=== PATIENT | female | born 1955 | race American Indian/Alaskan Native ===

== ENCOUNTER 2017-10-12 16:05 | Inpatient (IN) | payer MEDICAID, OTHER ==
[2017-10-12 16:08] VITALS: BMI 50.3
[2017-10-12] MEDS ORDERED: Sodium Chloride 0.9% 1,000 ML IV STA ×2 (16:50→19:56)
--- NOTE | 2017-10-12 17:10 | ED PDOC ---
Arrival/HPI - General Historian: Patient <Jasson Galarza - Last Filed: 10/12/17 18:06> <Mayco Michel - Last Filed: 10/13/17 05:57> - General Chief Complaint: GI Problem Time Seen by Provider: 10/12/17 16:32 - History of Present Illness Narrative History of Present Illness (Text): 10/12/17 16:47 A 62 year old female, whose past medical history includes morbidly obese, gout, and hypertension, presents to the emergency department complaining of decreased appetite and dry mouth. Patient reports mouth has "sour taste". Notes also experiencing unintentional weight loss for the past 3-4 weeks; as well as epigastric pain, currently minimal. Patient has also had dirrhea for past 4 days. Denies of any fever, or any other complaints at this time. Also, patient mentions she takes Meloxicam for arthritis. NO PMD (Jasson Galarza) Past Medical History - Provider Review Nursing Documentation Reviewed: Yes - Infectious Disease Hx of Infectious Diseases: None - Cardiac Hx Hypertension: Yes - Musculoskeletal/Rheumatological Hx Arthritis: Yes Hx Gout: Yes - Psychiatric Hx Substance Use: No - Surgical History Hx Section: Yes (x1) Other/Comment: laparoscopic surgery - Anesthesia Hx Anesthesia: No <Jasson Galarza - Last Filed: 10/12/17 18:06> Family/Social History - Physician Review Nursing Documentation Reviewed: Yes Family/Social History: No Known Family HX Smoking Status: Never Smoked Hx Alcohol Use: No Hx Substance Use: No <Jasson Galarza - Last Filed: 10/12/17 18:06> Allergies/Home Meds <Jasson Galarza - Last Filed: 10/12/17 18:06> <Mayco Michel - Last Filed: 10/13/17 05:57> Allergies/Adverse Reactions: Allergies No Known Allergies Allergy (Verified 10/12/17 16:07) Home Medications: Home Meds Medication Instructions Recorded Confirmed Allopurinol [Zyloprim] 1 tab PO DAILY 10/12/17 10/12/17 Colchicine [Colcrys] 1 tab PO BID 10/12/17 10/12/17 Ergocalciferol [Drisdol 50,000 1 cap PO Q7D 10/12/17 10/12/17 Intl Units Cap] Meloxicam [Mobic] 1 tab PO DAILY 10/12/17 10/12/17 amLODIPine [Norvasc] 1 tab PO DAILY 10/12/17 10/12/17 oxyCODONE/Acetaminophen [Percocet 1 tab PO Q6H PRN 10/12/17 10/12/17 5/325 mg Tab] Review of Systems - Physician Review All systems were reviewed & negative as marked: Yes - Review of Systems Constitutional: Other (dry mouth ("sour taste")). absent: Fevers Gastrointestinal: Abdominal Pain (epigastric), Appetite Changes (decreased with associated weight loss (3-4 weeks)) <Jasson Galarza - Last Filed: 10/12/17 18:06> Physical Exam Vital Signs Reviewed: Yes Temperature: Afebrile Blood Pressure: Normal Pulse: Regular Respiratory Rate: Normal Appearance: Positive for: Well-Appearing Pain Distress: None Mental Status: Positive for: Alert and Oriented X 3 - Systems Exam Head: Present: Atraumatic, Normocephalic Pupils: Present: PERRL Extroacular Muscles: Present: EOMI Conjunctiva: Present: Normal Mouth: Present: Moist Mucous Membranes Neck: Present: Normal Range of Motion Respiratory/Chest: Present: Clear to Auscultation, Good Air Exchange. No: Respiratory Distress, Accessory Muscle Use Cardiovascular: Present: Regular Rate and Rhythm, Normal S1, S2. No: Murmurs Abdomen: Present: Tenderness (epigastric tenderness). No: Rebound, Guarding Back: Present: Normal Inspection Upper Extremity: Present: Normal Inspection. No: Cyanosis, Edema Lower Extremity: Present: Normal Inspection. No: Edema Neurological: Present: GCS=15, CN II-XII Intact, Speech Normal Skin: Present: Warm, Dry, Normal Color. No: Rashes Psychiatric: Present: Alert, Oriented x 3, Normal Insight, Normal Concentration <Jasson Galarza - Last Filed: 10/12/17 18:06> Vital Signs Temp Pulse Resp BP Pulse Ox 10/12/17 23:11 98.0 F 79 19 118/79 100 10/12/17 19:40 76 18 106/77 99 10/12/17 16:18 97.9 F 81 18 127/84 98 Medical Decision Making <Jasson Galarza - Last Filed: 10/12/17 18:06> <Mayco Michel - Last Filed: 10/13/17 05:57> ED Course and Treatment: 10/12/17 16:51 Impression: 62 year old female with decreased appetite and minimal epigastric pain. Physical exam epigastric tenderness no rebound and no guarding. Plan: -- EKG -- Labs -- Urinalysis -- IV Fluids -- Reassess and disposition Prior Visits: Notes and results from previous visits were reviewed. Patient was last seen in the emergency department on Progress Notes: EKG: Ordered, reviewed, and independently interpreted the EKG. Rate : 68 BPM Rhythm : NSR Interpretation : No ST-segment elevations or depressions, no T-wave inversions, normal intervals. Comparison : No previous EKG for comparison. 10/12/17 18:06 pt with noted elevated cr. pt denies any h/o of renal insufficeny, does not recall recent blood work. (Jasson Galarza) 10/12/17 16:58 Case endorsed to me by Dr. Galarza. Pending CT. CT scan shows nonspecific colitis however pt denies any n/v or diarrhea or abdominal pain. will admit for ARF to House doctor. 10/12/17 21:25 (Mayco Michel) - Lab Interpretations Lab Results: 10/12/17 16:50 10/12/17 17:35 Lab Results 10/12/17 19:10: Urine Color Dark yellow, Urine Appearance Slight-cloudy, Urine pH 5.5, Ur Specific [place] >= 1.030, Urine Protein 30 H, Urine Glucose (UA) Negative, Urine Ketones Trace H, Urine Blood Negative, Urine Nitrate Negative, Urine Bilirubin Small H, Urine Urobilinogen 0.2, Ur Leukocyte Esterase Negative , Urine RBC 2 - 5, Urine WBC 5 - 10, Ur Epithelial Cells 6 - 8, Amorphous Sediment Small, Urine Bacteria Trace 10/12/17 17:35: Sodium 143, Potassium 4.6, Chloride 112 H, Carbon Dioxide 21, Anion Gap 15, BUN 23 H, Creatinine 2.7 H, Est GFR ( Amer) 22, Est GFR ( Non-Af Amer) 18, Random Glucose 75, Calcium 9.5, Total Bilirubin 1.1, AST 93 H, ALT 73 H, Alkaline Phosphatase 111, Lactate Dehydrogenase 793 H, Total Creatine Kinase 422 H, CK-MB (CK-2) 4.3 H, CK-MB (CK-2) % Cancelled, Troponin I < 0.01, Total Protein 7.3, Albumin 3.8, Globulin 3.5, Albumin/Globulin Ratio 1.1, Lipase 51 10/12/17 16:50: PT 11.1, INR 1.02, APTT 25.1 10/12/17 16:50: WBC 5.5, RBC 4.06, Hgb 10.6 L, Hct 34.1 L, MCV 84.0, MCH 26.1, MCHC 31.1, RDW 17.7 H, Plt Count 196, MPV 11.4 H, Gran % 52.4, Lymph % (Auto) 35.6 H, [place] % (Auto) 10.5 H, Eos % (Auto) 1.3 L, Baso % (Auto) 0.2, Gran # 2.86 , Lymph # 1.9, [place] # 0.6, Eos # 0.1, Baso # 0.01 - RAD Interpretation Radiology Orders: 10/12/17 18:05 ABD & PELVIS PO CONTRAST ONLY [CT] Stat - Medication Orders Current Medication Orders: Allopurinol (Zyloprim) 300 mg PO DAILY [facility] Colchicine (Colocrys) 0.6 mg PO BID [facility] Heparin Sodium (Porcine) (Heparin) 5,000 units SC Q12 [facility] PRN Reason: Protocol Sodium Chloride (Sodium Chloride 0.9%) 1,000 mls @ 100 mls/hr IV .Q10H [facility] Last Admin: 10/13/17 01:05 Dose: Pantoprazole Sodium (Protonix Ec Tab) 40 mg PO 0600 [facility] Last Admin: 10/13/17 05:42 Dose: Not Given Non-Admin Reason: Patient Asleep Discontinued Medications Sodium Chloride (Sodium Chloride 0.9%) 1,000 mls @ 1,000 mls/hr IV .Q1H [facility] Stop: 10/12/17 17:49 Last Admin: 10/12/17 17:26 Dose: 1,000 mls/hr eMAR Start Stop Document 10/12/17 17:26 [email or web address] (Rec: 10/12/17 17:27 [email or web address] Intravenous Solution Start Date 10/12/17 Start Time 17:27 End Date 10/12/17 Sodium Chloride (Sodium Chloride 0.9%) 1,000 mls @ 250 mls/hr IV .Q4H [facility] Stop: 10/12/17 23:55 Last Admin: 10/12/17 20:44 Dose: 250 mls/hr eMAR Start Stop Document 10/12/17 20:44 [email or web address] (Rec: 10/12/17 20:44 [email or web address] Intravenous Solution Start Date 10/12/17 Start Time 20:44 End Date 10/12/17 - Scribe Statement The provider has reviewed the documentation as recorded by the Scribe <Jasson Galarza - Last Filed: 10/12/17 18:06> <Mayco Michel - Last Filed: 10/13/17 05:57> - Scribe Statement Kev Mcqueen Provider Scribe Attestation: All medical record entries made by the Scribe were at my direction and personally dictated by me. I have reviewed the chart and agree that the record accurately reflects my personal performance of the history, physical exam, medical decision making, and the department course for this patient. I have also personally directed, reviewed, and agree with the discharge instructions and disposition. (Jasson Galarza) Disposition/Present on Arrival - Present on Arrival History of DVT/PE: No History of Uncontrolled Diabetes: No Urinary Catheter: No History of Decub. Ulcer: No History Surgical Site Infection Following: None <Jasson Galarza - Last Filed: 10/12/17 18:06> - Present on Arrival Any Indicators Present on Arrival: No - Disposition Have Diagnosis and Disposition been Completed?: Yes Disposition Time: 22:00 Patient Plan: Admission <Mayco Michel - Last Filed: 10/13/17 05:57> - Disposition Diagnosis: Acute renal failure Disposition: HOSPITALIZED Condition: IMPROVED
[2017-10-12 17:33] LABS: BASO # 0.01 K/mm3 (0.0-2.0); BASO % 0.2 % (0.0-3.0); EOS # 0.1 (0.0-0.7); EOS % 1.3 % (1.5-5.0); GRAN # 2.86 (1.4-6.5); GRAN % 52.4 % (50.0-68.0); HEMATOCRIT 34.1 % (36.0-48.0); LYMPH # 1.9 (1.2-3.4); LYMPH % 35.6 % (22.0-35.0); MEAN CORPUSCULAR HEMOGLOBIN 26.1 pg (25.0-35.0); MEAN CORPUSCULAR HGB CONC 31.1 g/dl (31.0-37.0); MEAN PLATELET VOLUME 11.4 fl (7.0-11.0); MONO # 0.6 (0.1-0.6); MONO % 10.5 % (1.0-6.0); RED CELL DISTRIBUTION WIDTH 17.7 % (11.5-14.5); WHITE BLOOD COUNT 5.5 10^3/ul (4.5-11.0)
[2017-10-12 17:40] LABS: INR 1.02 (0.93-1.08); PARTIAL THROMBOPLASTIN TIME 25.1 Seconds (25.1-36.5)
[2017-10-12 17:57] LABS: TROPONIN I < 0.01 ng/mL
[2017-10-12 17:58] LABS: ALB/GLOB RATIO 1.1 (1.1-1.8); ALKALINE PHOSPHATASE 111 U/L (38-126); ALT/SGPT 73 U/L (7-56); AST/SGOT 93 U/L (14-36); BILIRUBIN,TOTAL 1.1 mg/dL (0.2-1.3); BLOOD UREA NITROGEN 23 mg/dL (7-21); CALCIUM 9.5 mg/dL (8.4-10.5); CARBON DIOXIDE 21 mmol/L (21-33); CHLORIDE 112 mmol/L (98-107); GFR AFRICAN-AMERICAN 22; GLUCOSE,RANDOM 75 mg/dL (70-110); LIPASE 51 U/L (23-300); POTASSIUM 4.6 mmol/L (3.6-5.0); SODIUM 143 mmol/L (132-148); TOTAL PROTEIN 7.3 g/dL (5.8-8.3)
[2017-10-12] MEDS ORDERED: Iohexol 240 (50 ml) ONE (18:29)
[2017-10-12 19:13] LABS: PH,URINE 5.5 (4.7-8.0); URINE BILIRUBIN SMALL (NEGATIVE); URINE BLOOD NEGATIVE (NEGATIVE); URINE GLUCOSE (UA) NEGATIVE (NEGATIVE); URINE KETONE TRACE mg/dL (NEGATIVE); URINE LEUKOCYTE ESTERASE NEGATIVE Leu/uL (NEGATIVE); URINE PROTEIN 30 mg/dL (<30 mg/dL); URINE UROBILINOGEN 0.2 E.U./dL (<1 E.U./dL)
[2017-10-12 19:14] LABS: URINE AMORPHOUS SEDIMENT SMALL; URINE APPEARANCE SLIGHT-CLOUDY (CLEAR); URINE BACTERIA TRACE (NEG); URINE COLOR DARK YELLOW (YELLOW)
--- NOTE | 2017-10-12 20:54 | CT ---
EXAM: CT Abdomen and Pelvis Without Intravenous Contrast CLINICAL HISTORY: 62 years old, female; Pain; Abdominal pain; Acute; Additional info: Abd pain, diarrhea TECHNIQUE: Axial computed tomography images of the abdomen and pelvis without intravenous contrast. All CT scans at this facility use one or more dose reduction techniques, viz.: automated exposure control; ma/kV adjustment per patient size (including targeted exams where dose is matched to indication; i.e. head); or iterative reconstruction technique. Coronal and sagittal reformatted images were created and reviewed. Oral contrast was utilized. COMPARISON: No relevant prior studies available. FINDINGS: Lower thorax: The bilateral lung bases are clear. ABDOMEN: Liver: Steatosis. Gallbladder and bile ducts: The gallbladder is surgically absent. No intra-extrahepatic biliary ductal dilation. Pancreas: Limited evaluation secondary to the lack of intravenous contrast. Spleen: No acute findings. Adrenals: No acute findings. Kidneys and ureters: No obstructing stones. No hydronephrosis. PELVIS: Bladder: No acute findings. Reproductive: No acute findings. Appendix: The appendix is of normal-caliber (series 2, image 94). ABDOMEN and PELVIS: Stomach and bowel: Mural edema within the cecum, ascending and proximal transverse colons, with trace surrounding inflammatory change. Fat containing umbilical hernia. Fat-containing left inguinal hernia. Peritoneum: As above. Lymph nodes: Limited evaluation without intravenous contrast. Vasculature: No aortic aneurysm. Bones: No acute fracture. IMPRESSION: Findings consistent with colitis of the proximal colon, as detailed above.
--- NOTE | 2017-10-12 21:26 | ED PDOC ---
Physical Exam Vital Signs Temp Pulse Resp BP Pulse Ox 10/12/17 19:40 76 18 106/77 99 10/12/17 16:18 97.9 F 81 18 127/84 98 Medical Decision Making ED Course and Treatment: 10/12/17 21:25 Case endorsed to me by Dr. Galarza. - Lab Interpretations Lab Results: 10/12/17 16:50 10/12/17 17:35 Lab Results 10/12/17 19:10: Urine Color Dark yellow, Urine Appearance Slight-cloudy, Urine pH 5.5, Ur Specific [place] >= 1.030, Urine Protein 30 H, Urine Glucose (UA) Negative, Urine Ketones Trace H, Urine Blood Negative, Urine Nitrate Negative, Urine Bilirubin Small H, Urine Urobilinogen 0.2, Ur Leukocyte Esterase Negative , Urine RBC 2 - 5, Urine WBC 5 - 10, Ur Epithelial Cells 6 - 8, Amorphous Sediment Small, Urine Bacteria Trace 10/12/17 17:35: Sodium 143, Potassium 4.6, Chloride 112 H, Carbon Dioxide 21, Anion Gap 15, BUN 23 H, Creatinine 2.7 H, Est GFR ( Amer) 22, Est GFR ( Non-Af Amer) 18, Random Glucose 75, Calcium 9.5, Total Bilirubin 1.1, AST 93 H, ALT 73 H, Alkaline Phosphatase 111, Lactate Dehydrogenase 793 H, Total Creatine Kinase 422 H, CK-MB (CK-2) 4.3 H, CK-MB (CK-2) % Cancelled, Troponin I < 0.01, Total Protein 7.3, Albumin 3.8, Globulin 3.5, Albumin/Globulin Ratio 1.1, Lipase 51 10/12/17 16:50: PT 11.1, INR 1.02, APTT 25.1 10/12/17 16:50: WBC 5.5, RBC 4.06, Hgb 10.6 L, Hct 34.1 L, MCV 84.0, MCH 26.1, MCHC 31.1, RDW 17.7 H, Plt Count 196, MPV 11.4 H, Gran % 52.4, Lymph % (Auto) 35.6 H, [place] % (Auto) 10.5 H, Eos % (Auto) 1.3 L, Baso % (Auto) 0.2, Gran # 2.86 , Lymph # 1.9, [place] # 0.6, Eos # 0.1, Baso # 0.01 - RAD Interpretation Radiology Orders: 10/12/17 18:05 ABD & PELVIS PO CONTRAST ONLY [CT] Stat - Medication Orders Current Medication Orders: Sodium Chloride (Sodium Chloride 0.9%) 1,000 mls @ 250 mls/hr IV .Q4H [facility] Stop: 10/12/17 23:55 Last Admin: 10/12/17 20:44 Dose: 250 mls/hr eMAR Start Stop Document 10/12/17 20:44 [email or web address] (Rec: 10/12/17 20:44 [email or web address] Intravenous Solution Start Date 10/12/17 Start Time 20:44 End Date 10/12/17 Discontinued Medications Sodium Chloride (Sodium Chloride 0.9%) 1,000 mls @ 1,000 mls/hr IV .Q1H [facility] Stop: 10/12/17 17:49 Last Admin: 10/12/17 17:26 Dose: 1,000 mls/hr eMAR Start Stop Document 10/12/17 17:26 [email or web address] (Rec: 10/12/17 17:27 [email or web address] Intravenous Solution Start Date 10/12/17 Start Time 17:27 End Date 10/12/17 Disposition/Present on Arrival - Present on Arrival History of DVT/PE: No History of Uncontrolled Diabetes: No Urinary Catheter: No History of Decub. Ulcer: No History Surgical Site Infection Following: None - Disposition Forms: [facility] ([place])
--- NOTE | 2017-10-13 00:41 | CP.PCM.HP ---
<Enzo Kaplan - Last Filed: 10/13/17 00:25> History of Present Illness - History of Present Illness History of Present Illness: Enzo Kaplan DO PGY1 - Internal Medicine H&P CC: Loss of appetite and fatigue x4 weeks HPI: 62 yo F with PMH of morbid obesity, gout, HTN and arthritis, presented to the ER complaining of sour taste in her mouth, lack of appetite, fatigue, and weight loss for the past 4 weeks. She reports that one month ago, her PMD started her on meloxicam for her joint pains, and ever since starting that she has had a sour taste in her mouth with everything she eats, subsequently resulting in a lack of appetite. She reports that she hasn't been eating much for the past month, and has lost a small amount of weight (unsure of how much), and that she has been fatigued. She denies fevers, chills, night sweats, hematochezia, melena, hemoptysis, hematemesis. She also reports chronic lower extremity swelling, recently worsened, but denies any history of renal disease or heart disease. She reports normal urinary habits, without any recent changes ; denies dysuria, hematuria, urgency, frequency, hesitancy. She also denies nausea, vomiting, diarrhea, constipation, abdominal pain. ROS: 12 point ROS was obtained and was negative except as in HPI PMH: As above PSH: section; Unknown laparoscopic abdominal surgery (probably cholecystecomy) Soc: Denies tobacco or alcohol; reports 12 year history of smoking cocaine, clean since 1994 FHx: Colon CA in grandmother age 70 All: NKDA PMD: Dr. Prather Present on Admission - Present on Admission Any Indicators Present on Admission: No Past Patient History - Infectious Disease Hx of Infectious Diseases: None - Past Social History Smoking Status: Never Smoked - CARDIAC Hx Hypertension: Yes - MUSCULOSKELETAL/RHEUMATOLOGICAL Hx Arthritis: Yes Hx Gout: Yes - PSYCHIATRIC Hx Substance Use: No - SURGICAL HISTORY Hx Section: Yes (x1) Other/Comment: laparoscopic surgery - ANESTHESIA Hx Anesthesia: No Meds Allergies/Adverse Reactions: Allergies Allergy/AdvReac Type Severity Reaction Status Date / Time No Known Allergies Allergy Verified 10/12/17 16:07 Physical Exam - Constitutional Appears: Non-toxic, No Acute Distress - Head Exam Head Exam: ATRAUMATIC, NORMOCEPHALIC - Eye Exam Eye Exam: EOMI, Normal appearance, Periorbital swelling. absent: Scleral icterus - ENT Exam ENT Exam: Mucous Membranes Dry - Neck Exam Neck exam: Positive for: Normal Inspection - Respiratory Exam Respiratory Exam: Clear to Auscultation Bilateral, NORMAL BREATHING PATTERN - Cardiovascular Exam Cardiovascular Exam: RRR, +S1, +S2. absent: JVD - GI/Abdominal Exam GI & Abdominal Exam: Normal Bowel Sounds, Soft. absent: Distended, Firm, Guarding, Organomegaly, Rebound, Rigid, Tenderness Additional comments: Morbidly obese - Extremities Exam Extremities exam: Positive for: pedal edema. Negative for: calf tenderness Additional comments: 2-3+ pitting edema to upper [place] - Back Exam Back exam: absent: CVA tenderness (L), CVA tenderness (R) - Neurological Exam Neurological exam: Alert, Oriented x3 - Psychiatric Exam Psychiatric exam: Normal Affect, Normal Mood - Skin Skin Exam: Dry, Intact Results - Vital Signs Recent Vital Signs: Last Vital Signs Temp 98.0 F 10/12/17 23:11 Pulse 79 10/12/17 23:11 Resp 18 10/12/17 23:57 BP 118/79 10/12/17 23:11 Pulse Ox 99 10/12/17 23:57 - Labs Result Diagrams: 10/12/17 16:50 10/12/17 17:35 Assessment & Plan - Assessment and Plan (Free Text) Assessment: 62 yo F with PMH of morbid obesity, gout, HTN, arthritis presents complaining of dysgeusia, anorexia, and fatigue. Noted to have renal failure on intake labs and edema of proximal colon on sectional imaging Plan 1. Fatigue, weightloss, anorexia - Likely 2/2 renal failure vs dysgeusia as adverse effect of meloxicam - IVF hydration - Continue to monitor 2. Renal failure - Patient noted to have severely elevated creatinine on intake labs; no prior labs to compare - No obstructive uropathy, like prerenal 2/2 anorexia vs intrarenal 2/2 rhabdomyolysis (elevated CK) - Patient received 2L bolus in ER, continue IVF hydration, recheck Cr with AM labs - Ordered renal US to r/o anatomical pathology; Urine electrolytes, osmolality, creatinine to calculate FeNa and fluid status - Requested nephro consult; appreciate recs 3. Peripheral edema - Likely 2/2 renal failure - No signs of pulmonary edema on exam - Hold home norvasc - Strict I&O and daily weights - Continue to monitor 4. Proximal colon edema - CT A/P showed mural edema in cecum, ascending and proximal transverse colons - Ordered stool lactoferrin to r/o inflammatory etiology - Ordered stool culture to r/o infectious etiology - Requested GI consult; appreciate recs 5. Transaminemia - Patient with mild elevation in aminotransferases, without RUQ tenderness, negative singh's sign - Likely 2/2 steatosis, as seen on CT Abdomen - Normal INR - Monitor with AM labs - GI on consult, appreciate recs 6. Anemia - Normocytic anemia with elevated RDW; likely 2/2 chronic disease vs renal failure; no prior labs to compare - Ordered iron studies, folate, and B12 - Patient is hemodynamically stable with no signs of active bleeding - Recheck with AM labs 7. h/o Gout - Resume home meds 8. h/o HTN - BP currently stable; hold home norvasc as above GI/DVT Ppx - Protonix and Heparin Patient seen, discussed, and reviewed with attending <Juni Da Silva - Last Filed: 10/13/17 06:26> Results - Vital Signs Recent Vital Signs: Last Vital Signs Temp 98.7 F 10/13/17 01:32 Pulse 84 10/13/17 01:32 Resp 18 10/13/17 01:32 BP 132/87 10/13/17 01:32 Pulse Ox 99 10/12/17 23:57 - Labs Result Diagrams: 10/12/17 16:50 10/12/17 17:35 Labs: Laboratory Results - last 24 hr 10/12/17 23:58 Ur Random Sodium 96 Ur Random Potassium 37.1 Attending/Attestation - Attestation I have personally seen and examined this patient.: Yes I have fully participated in the care of the patient.: Yes I have reviewed all pertinent clinical information: Yes Notes (Text): 10/13/17 06:25 Patient was seen when she was in bed # 14 in the ER. Agree with history, physical examination, assessment and plan.
[2017-10-13] MEDS: Sodium Chloride 0.9% 1,000 ML IV SCH ×3 (01:05→20:00)
[2017-10-13] MEDS: Pantoprazole 40 mg EC Tab PO SCH (05:42)
[2017-10-13 07:02] LABS: BASO # 0.01 K/mm3 (0.0-2.0); BASO % 0.2 % (0.0-3.0); EOS # 0.1 (0.0-0.7); EOS % 1.2 % (1.5-5.0); GRAN # 3.54 (1.4-6.5); GRAN % 60.8 % (50.0-68.0); HEMATOCRIT 31.5 % (36.0-48.0); LYMPH # 1.5 (1.2-3.4); LYMPH % 25.9 % (22.0-35.0); MEAN CELL VOLUME 84.5 fl (80.0-105.0); MEAN CORPUSCULAR HEMOGLOBIN 25.7 pg (25.0-35.0); MEAN CORPUSCULAR HGB CONC 30.5 g/dl (31.0-37.0); MONO # 0.7 (0.1-0.6); MONO % 11.9 % (1.0-6.0); PLATELET COUNT 177 10^3/uL (120.0-450.0); RED CELL DISTRIBUTION WIDTH 17.9 % (11.5-14.5); WHITE BLOOD COUNT 5.8 10^3/ul (4.5-11.0)
[2017-10-13 07:09] LABS: IRON 44 ug/dL (45-180)
[2017-10-13 08:02] LABS: BILIRUBIN,TOTAL 0.9 mg/dL (0.2-1.3); CALCIUM 8.8 mg/dL (8.4-10.5); MAGNESIUM 1.2 mg/dL (1.7-2.2); PHOSPHOROUS 4.1 mg/dL (2.5-4.5); POTASSIUM 4.1 mmol/L (3.6-5.0)
[2017-10-13] MEDS: Oxycodone/Acetaminophen 5/325 mg Tab PO PRN ×2 (10:22→16:12)
--- NOTE | 2017-10-13 11:32 | US ---
PROCEDURE: Ultrasound of the Kidneys HISTORY: Renal failure COMPARISON: None available. TECHNIQUE: Sonogram of the kidneys. FINDINGS: Limited visualization RIGHT KIDNEY: Measures: 10.5 x 4.7 x 4.7 cm. No obstructing calculus, hydronephrosis, or renal cyst identified. LEFT KIDNEY: Measures: 10.7 x 5.5 x 4.9 cm. No obstructing calculus, hydronephrosis, or renal cyst identified. OTHER FINDINGS: None. IMPRESSION: Limited visualization. No obstructing calculus, hydronephrosis, or renal cyst identified.
[2017-10-13] MEDS ORDERED: Magnesium Sulfate 2 GM in Sodium Chloride 0.9% 100 ML IVPB ONE (11:33)
--- NOTE | 2017-10-13 12:42 | CP.PCM.PN ---
<Taras Holland - Last Filed: 10/13/17 15:07> Subjective - Date & Time of Evaluation Date of Evaluation: 10/13/17 Time of Evaluation: 12:31 - Subjective Subjective: Medicine progress note for Dr. Carroll - Taras Santiago DO PGY - 1, pager [phone] Pt s/e at bedside. In terms of her dysgeusia, patient still states that her appetite for breakfast was low because of the taste in her mouth. In terms of her weight loss, pt states that she started at 330 lbs two months ago, and is now at 318 - she attributes this to her decrease in appetite. I inquired about her past renal history, patient states that she believes she had renal imaging previously, but that on follow up, her PMD stated that her renal function and structure were fine (she states she will call her pmd to clarify if she had renal work up or hepatic). At this time, pt denies any other complaints, but her mother did mention that the patient had "iced-tea colored urine" yesterday. Objective - Vital Signs/Intake and Output Vital Signs (last 24 hours): Temp Pulse Resp BP Pulse Ox 98.7 F 85 18 125/85 99 10/13/17 01:32 10/13/17 10:23 10/13/17 01:32 10/13/17 10:23 10/12/17 23:57 - Medications Medications: Current Medications Allopurinol (Zyloprim) 300 mg PO DAILY [facility] Last Admin: 10/13/17 10:22 Dose: 300 mg Amlodipine Besylate (Norvasc) 5 mg PO DAILY [facility] Last Admin: 10/13/17 10:23 Dose: 5 mg Colchicine (Colocrys) 0.6 mg PO BID [facility] Last Admin: 10/13/17 10:22 Dose: 0.6 mg Heparin Sodium (Porcine) (Heparin) 5,000 units SC Q12 [facility] PRN Reason: Protocol Last Admin: 10/13/17 10:22 Dose: 5,000 units Sodium Chloride (Sodium Chloride 0.9%) 1,000 mls @ 100 mls/hr IV .Q10H [facility] Last Admin: 10/13/17 10:23 Dose: 100 mls/hr Magnesium Sulfate 2 gm/ Sodium (Chloride) 104 mls @ 102 mls/hr IVPB ONCE ONE Stop: 10/13/17 12:34 Oxycodone/Acetaminophen (Percocet 5/325 Mg Tab) 1 tab PO Q6H PRN PRN Reason: Pain, severe (8-10) Stop: 10/16/17 08:50 Last Admin: 10/13/17 10:22 Dose: 1 tab Pantoprazole Sodium (Protonix Ec Tab) 40 mg PO 0600 [facility] Last Admin: 10/13/17 05:42 Dose: Not Given - Labs Labs: 10/13/17 06:00 10/13/17 06:00 PT 11.1 SECONDS (9.4-12.5) 10/12/17 16:50 INR 1.02 (0.93-1.08) 10/12/17 16:50 APTT 25.1 Seconds (25.1-36.5) 10/12/17 16:50 - Additional Findings Additional findings: Phys Exam: VS as below Const'l: obese female, aa&o x 4, nad Head/Neck: neck supple, no jvd, trachea midline, carotid midline, no cervical /head mass Eyes: yuly, nonicteric sclera, eom intact ENT: auditory acuity grossly intact, throat not congested, no nasal deformity Cardio: rrr, no m/r/g, no carotid bruit, nml s1, s2 Pulm: no accessory muscle use, equal nml breath sounds bilaterally, ctab Abd: obesity-limited exam; Melvin's sign absent; s/nt/nd, nbs x 4 q, no palpable masses Derm: no rashes, no ulcers, no lesions Extr: + b/l 1+ non-pitting edema in LE; no cyanosis, no calf tenderness, no lesions, no varicosities Neuro: cn II-XII grossly intact, ue and le 5/5 muscle strength bilaterally, no los ue, le bilaterally and core Assessment and Plan - Assessment and Plan (Free Text) Assessment: A/P: 62 y/o F with PMHx morbid obesity, gout, HTN, and arthritis presenting with dysgeusia and fatigue. Pt also has PAMELA and colitis on CT Acute Weight Loss likely 2/2 Dysgeusia VS APMELA - Hold meloxicam - Monitor appetite Acute Renal Failure - Urine lytes, urine eosinophils, esr, crp pending - Creatinine trending down right now - Renal u/s: No obstructing calculus, hydronephrosis, nor renal cyst ID - UA: few RBC's, Protein 30, with negative leuk esterase - FeNa: .3%, definitely pre-renal etiology - CK 4.3, but no clinical signs of rhabdomyolysis - likely 2/2 dehydration - Nephro c/s: Spoke with Dr. Landrum, thank you Cut Colchicine dose in half Ordered uric acid levels Transaminitis - trending downward - GI on c/s: Dr. Begum - Monitor - Combined with elevated B12, suspicious for hepatitis - hep panel ordered - Stool electrolytes, fecal leukocytes, giardia, c. diff, ova/parasites, and culture Colitis - Stool culture, stool lactoferrin pending - GI on c/s: Dr. Begum Anemia likely 2/2 ACD - Pt's baseline not available, but Fe low and TIBC low with normal Ferritin and normal percent saturation indicate ACD - Monitor with labs at this time HTN - Continue norvasc, as patient's BP was climbing after it was held. Pedal edema insignificant at this time GI/DVT PPX: Protonix and Heparin <Digna Carroll - Last Filed: 10/13/17 21:10> Objective - Vital Signs/Intake and Output Vital Signs (last 24 hours): Temp Pulse Resp BP Pulse Ox 98.7 F 85 18 125/85 99 10/13/17 01:32 10/13/17 10:23 10/13/17 01:32 10/13/17 10:23 10/12/17 23:57 Intake and Output: 10/13/17 10/14/17 18:59 06:59 Intake Total 1300 Balance 1300 - Medications Medications: Current Medications Allopurinol (Zyloprim) 300 mg PO DAILY [facility] Last Admin: 10/13/17 10:22 Dose: 300 mg Amlodipine Besylate (Norvasc) 5 mg PO DAILY [facility] Last Admin: 10/13/17 10:23 Dose: 5 mg Colchicine (Colocrys) 0.3 mg PO BID [facility] Last Admin: 10/13/17 17:29 Dose: 0.3 mg Heparin Sodium (Porcine) (Heparin) 5,000 units SC Q12 [facility] PRN Reason: Protocol Last Admin: 10/13/17 10:22 Dose: 5,000 units Sodium Chloride (Sodium Chloride 0.9%) 1,000 mls @ 100 mls/hr IV .Q10H [facility] Last Admin: 10/13/17 20:00 Dose: Not Given Oxycodone/Acetaminophen (Percocet 5/325 Mg Tab) 1 tab PO Q6H PRN PRN Reason: Pain, severe (8-10) Stop: 10/16/17 08:50 Last Admin: 10/13/17 16:12 Dose: 1 tab Pantoprazole Sodium (Protonix Ec Tab) 40 mg PO 0600 [facility] Last Admin: 10/13/17 05:42 Dose: Not Given - Labs Labs: 10/13/17 06:00 10/13/17 06:00 PT 11.1 SECONDS (9.4-12.5) 10/12/17 16:50 INR 1.02 (0.93-1.08) 10/12/17 16:50 APTT 25.1 Seconds (25.1-36.5) 10/12/17 16:50 Attending/Attestation - Attestation I have personally seen and examined this patient.: Yes I have fully participated in the care of the patient.: Yes I have reviewed all pertinent clinical information, including history, physical exam and plan: Yes Notes (Text): 10/13/17 21:06 Patient seen and examined independently at bedside. Vitals,labs, imaging results reviewed. She reports some improvement in symptoms. Hold NSAIDS. Renal consult appreciated. Follow up labs, serologies. GI consult requested for proximal colitis. Agree with the plan of care outlined above by the resident.
--- NOTE | 2017-10-13 13:03 | CP.PCM.CON ---
History of Present Illness - History of Present Illness History of Present Illness: renal consult note please call us at [phone] 62 yo F with PMH of morbid obesity, gout, HTN and arthritis, is admitted with sour taste in her mouth, lack of appetite, fatigue, and weight loss for the past 4 weeks. She reports that one month ago, her PMD started her on meloxicam for her joint pains, and ever since starting that she has had a sour taste in her mouth with everything she eats, subsequently resulting in a lack of appetite. Review of Systems - Review of Systems All systems: reviewed and no additional remarkable complaints except Past Patient History - Infectious Disease Hx of Infectious Diseases: None - Past Social History Smoking Status: Never Smoked - CARDIAC Hx Hypertension: Yes - MUSCULOSKELETAL/RHEUMATOLOGICAL Hx Arthritis: Yes Hx Gout: Yes - PSYCHIATRIC Hx Substance Use: No - SURGICAL HISTORY Hx Section: Yes (x1) Other/Comment: laparoscopic surgery - ANESTHESIA Hx Anesthesia: No Meds Home Medications: Home Medication List Medication Instructions Recorded Confirmed Type RX: Colchicine [Colcrys] 1 tab PO DAILY #0 tablet 10/14/17 Rx RX: amLODIPine [Norvasc] 5 mg PO DAILY tab 10/14/17 Rx Allergies/Adverse Reactions: Allergies Allergy/AdvReac Type Severity Reaction Status Date / Time No Known Allergies Allergy Verified 10/12/17 16:07 - Medications Medications: Current Medications Allopurinol (Zyloprim) 300 mg PO DAILY [facility] Last Admin: 10/13/17 10:22 Dose: 300 mg Amlodipine Besylate (Norvasc) 5 mg PO DAILY [facility] Last Admin: 10/13/17 10:23 Dose: 5 mg Colchicine (Colocrys) 0.6 mg PO BID [facility] Last Admin: 10/13/17 10:22 Dose: 0.6 mg Heparin Sodium (Porcine) (Heparin) 5,000 units SC Q12 [facility] PRN Reason: Protocol Last Admin: 10/13/17 10:22 Dose: 5,000 units Sodium Chloride (Sodium Chloride 0.9%) 1,000 mls @ 100 mls/hr IV .Q10H [facility] Last Admin: 10/13/17 10:23 Dose: 100 mls/hr Oxycodone/Acetaminophen (Percocet 5/325 Mg Tab) 1 tab PO Q6H PRN PRN Reason: Pain, severe (8-10) Stop: 10/16/17 08:50 Last Admin: 10/13/17 10:22 Dose: 1 tab Pantoprazole Sodium (Protonix Ec Tab) 40 mg PO 0600 [facility] Last Admin: 10/13/17 05:42 Dose: Not Given Physical Exam - Constitutional Appears: Non-toxic, No Acute Distress - Head Exam Head Exam: NORMAL INSPECTION - Eye Exam Eye Exam: Normal appearance - ENT Exam ENT Exam: Mucous Membranes Moist - Respiratory Exam Respiratory Exam: NORMAL BREATHING PATTERN - Cardiovascular Exam Cardiovascular Exam: +S1, +S2 - GI/Abdominal Exam GI & Abdominal Exam: Soft - Extremities Exam Extremities exam: Positive for: normal inspection - Neurological Exam Neurological exam: Alert, Oriented x3 Results - Vital Signs Recent Vital Signs: Last Vital Signs Temp 98.7 F 10/13/17 01:32 Pulse 85 10/13/17 10:23 Resp 18 10/13/17 01:32 BP 125/85 10/13/17 10:23 Pulse Ox 99 10/12/17 23:57 - Labs Result Diagrams: 10/14/17 06:45 10/14/17 06:45 Labs: Laboratory Results - last 24 hr 10/12/17 10/13/17 10/13/17 23:58 00:12 06:00 WBC 5.8 RBC 3.73 Hgb 9.6 L Hct 31.5 L MCV 84.5 MCH 25.7 MCHC 30.5 L RDW 17.9 H Plt Count 177 Gran % 60.8 Lymph % (Auto) 25.9 [place] % (Auto) 11.9 H Eos % (Auto) 1.2 L Baso % (Auto) 0.2 Gran # 3.54 Lymph # 1.5 [place] # 0.7 H Eos # 0.1 Baso # 0.01 Sodium Potassium Chloride Carbon Dioxide Anion Gap BUN Creatinine Est GFR ( Amer) Est GFR (Non-Af Amer) Random Glucose Calcium Phosphorus Magnesium Iron TIBC % Saturation Ferritin Total Bilirubin AST ALT Alkaline Phosphatase Total Protein Albumin Globulin Albumin/Globulin Ratio Urine Osmolality 626 Ur Random Creatinine 451 Ur Random Sodium 96 Ur Random Potassium 37.1 10/13/17 10/13/17 10/13/17 06:00 06:00 06:00 WBC RBC Hgb Hct MCV MCH MCHC RDW Plt Count Gran % Lymph % (Auto) [place] % (Auto) Eos % (Auto) Baso % (Auto) Gran # Lymph # [place] # Eos # Baso # Sodium 140 Potassium 4.1 Chloride 112 H Carbon Dioxide 19 L Anion Gap 13 BUN 21 Creatinine 2.1 H Est GFR ( Amer) 29 Est GFR (Non-Af Amer) 24 Random Glucose 67 L Calcium 8.8 Phosphorus 4.1 Magnesium 1.2 L Iron 44 L TIBC 193 L % Saturation 23 Ferritin 224.0 Total Bilirubin 0.9 AST 77 H ALT 70 H Alkaline Phosphatase 84 Total Protein 6.0 Albumin 2.9 L Globulin 3.1 Albumin/Globulin Ratio 1.0 L Urine Osmolality Ur Random Creatinine Ur Random Sodium Ur Random Potassium Assessment & Plan - Assessment and Plan (Free Text) Plan: PAMELA/?CKD/hyperuricemia/obesity/htn ddx: prerenal from volume depletion/Uric acid induced nephropathy agree with fluids monitor UOP lytes: acidosis should improve with renal function, monitor for now bp ok recommend cutting back on colchicine dose d.w housestaenoc
[2017-10-13 13:23] LABS: FOLATE 4.4 ng/mL
--- NOTE | 2017-10-13 22:10 | CARD ---
APPROVED REPORT EKG Measurement Heart [id number] <Conclusion> Normal sinus rhythm Normal ECG
--- NOTE | 2017-10-14 05:22 | CON ---
DATE: 10/13/2017 This patient was seen and evaluated earlier. REASON FOR CONSULTATION: Abnormal CAT scan. HISTORY OF PRESENT ILLNESS: The patient presented to the emergency room complaining of weakness and admitted with weight loss for the past three to four days with epigastric discomfort and weakness. The patient was also complaining of some loose bowel movements. In the ER, she was found to have acute kidney injury with a creatinine of 2.7. The patient was found to have normal renal function before. The patient was started on meloxicam about a month ago for her arthritis. No history of hematemesis. No melena. PAST MEDICAL HISTORY: Other past medical history is significant as above, gouty arthritis, and hypertension. The patient was found to have acute kidney injury. Other past medical history as above. PAST SURGICAL HISTORY: Significant for . SOCIAL HISTORY: Denies alcohol,smoking. history of using cocaine; the last was about more than 20 years ago. FAMILY HISTORY: Grandmother had a colon cancer. ALLERGIES: NO KNOWN DRUG ALLERGIES. REVIEW OF SYSTEMS: Positive as above. Other systems reviewed. PHYSICAL EXAMINATION: GENERAL: The patient is lying on the bed, not in acute distress. VITAL SIGNS: Temperature is 98.7, blood pressure 132/87, pulse 84, and respirations 18. HEENT: Atraumatic, anicteric. NECK: Supple. HEART: S1 and S2 heard. LUNGS: Bilateral air entry present. ABDOMEN: Soft and obese, tenderness present. EXTREMITIES: No cyanosis. No clubbing. NEUROLOGIC: Alert and oriented. Moves all the extremities. LABORATORY DATA: Hemoglobin is 9.6, hematocrit 31.5, WBC 5.8, and platelets 177,000. Chemistry is essentially unremarkable except AST was elevated to 77 and ALT 70. IMPRESSION AND PLAN: This is a 62-year-old patient admitted with weakness, had found to be 1. acute kidney injury . As per PCP renal function normal in the past (noted in chart) 2. Patient was was also found to be anemic with a hemoglobin of 9.6. No obvious bleeding NM or yuri.H/o NSAID used Anemia could be multifactorial 3. Ther right colon thickening suggestive of colitis vs under but patient has no complaints abdominal pain 4. Mildly elevated transaminases. DD should include drug induced ?maloxicam r/ o chronic liver disease NIELSON viral heaptitis Would recommend: 1. Followup Hb/Hct 2. PPI 3. Hepatitis profile 4. Elective egd and colon 5. Renal followup 6. Stool studies We will continue to closely follow up her care. Slowly advance the diet. Thank you very much for allowing me to participate in the care of the patient. Continue with PPI. Dougie Begum MD MTDD
[2017-10-14] MEDS: Sodium Chloride 0.9% 1,000 ML IV SCH (06:23)
[2017-10-14] MEDS: Pantoprazole 40 mg EC Tab PO SCH (06:24)
[2017-10-14 07:39] LABS: BASO # 0.01 K/mm3 (0.0-2.0); BASO % 0.2 % (0.0-3.0); EOS # 0.1 (0.0-0.7); EOS % 1.1 % (1.5-5.0); GRAN % 63.6 % (50.0-68.0); HEMATOCRIT 33.9 % (36.0-48.0); LYMPH # 1.6 (1.2-3.4); MEAN CELL VOLUME 83.9 fl (80.0-105.0); MEAN CORPUSCULAR HEMOGLOBIN 25.7 pg (25.0-35.0); MEAN CORPUSCULAR HGB CONC 30.7 g/dl (31.0-37.0); MONO # 0.6 (0.1-0.6); MONO % 9.1 % (1.0-6.0); PLATELET COUNT 156 10^3/uL (120.0-450.0); RED CELL DISTRIBUTION WIDTH 17.9 % (11.5-14.5); WHITE BLOOD COUNT 6.3 10^3/ul (4.5-11.0)
[2017-10-14 08:13] LABS: CALCIUM 9.2 mg/dL (8.4-10.5); POTASSIUM 4.4 mmol/L (3.6-5.0); TOTAL PROTEIN 6.7 g/dL (5.8-8.3)
[2017-10-14 08:26] VITALS: RESP 20; TEMP 98.3; O2SAT 100
[2017-10-14] MEDS ORDERED: Sodium Chloride 0.9% 1,000 ML IV SCH (09:53)
[2017-10-14] MEDS: Oxycodone/Acetaminophen 5/325 mg Tab PO PRN (10:38)
[2017-10-14 10:44] VITALS: BP 128/87; PULSE 85
--- NOTE | 2017-10-14 13:41 | CP.PCM.DIS ---
Provider - Provider Date of Admission: 10/12/17 22:17 Attending physician: Will Hernandez MD Consults: Dr. Landrum: Nephro Dr. Begum: GI Time Spent in preparation of Discharge (in minutes): 45 Hospital Course - Lab Results Lab Results: Most Recent Lab Values WBC 6.3 10^3/ul (4.5-11.0) 10/14/17 06:45 RBC 4.04 10^6/uL (3.5-6.1) 10/14/17 06:45 Hgb 10.4 g/dL (12.0-16.0) L 10/14/17 06:45 Hct 33.9 % (36.0-48.0) L 10/14/17 06:45 MCV 83.9 fl (80.0-105.0) 10/14/17 06:45 MCH 25.7 pg (25.0-35.0) 10/14/17 06:45 MCHC 30.7 g/dl (31.0-37.0) L 10/14/17 06:45 RDW 17.9 % (11.5-14.5) H 10/14/17 06:45 Plt Count 156 10^3/uL (120.0-450.0) 10/14/17 06:45 MPV 11.4 fl (7.0-11.0) H 10/12/17 16:50 Gran % 63.6 % (50.0-68.0) 10/14/17 06:45 Lymph % (Auto) 26.0 % (22.0-35.0) 10/14/17 06:45 [place] % (Auto) 9.1 % (1.0-6.0) H 10/14/17 06:45 Eos % (Auto) 1.1 % (1.5-5.0) L 10/14/17 06:45 Baso % (Auto) 0.2 % (0.0-3.0) 10/14/17 06:45 Gran # 4.00 (1.4-6.5) 10/14/17 06:45 Lymph # 1.6 (1.2-3.4) 10/14/17 06:45 [place] # 0.6 (0.1-0.6) 10/14/17 06:45 Eos # 0.1 (0.0-0.7) 10/14/17 06:45 Baso # 0.01 K/mm3 (0.0-2.0) 10/14/17 06:45 ESR 26 mm/hr (0.0-20.0) H 10/14/17 10:38 PT 11.1 SECONDS (9.4-12.5) 10/12/17 16:50 INR 1.02 (0.93-1.08) 10/12/17 16:50 APTT 25.1 Seconds (25.1-36.5) 10/12/17 16:50 Sodium 141 mmol/L (132-148) 10/14/17 06:45 Potassium 4.4 mmol/L (3.6-5.0) 10/14/17 06:45 Chloride 115 mmol/L (98-107) H 10/14/17 06:45 Carbon Dioxide 16 mmol/L (21-33) L 10/14/17 06:45 Anion Gap 14 (10-20) 10/14/17 06:45 BUN 17 mg/dL (7-21) 10/14/17 06:45 Creatinine 1.7 mg/dl (0.7-1.2) H 10/14/17 06:45 Est GFR ( Amer) 37 10/14/17 06:45 Est GFR (Non-Af Amer) 31 10/14/17 06:45 Random Glucose 72 mg/dL (70-110) 10/14/17 06:45 Uric Acid 3.6 mg/dL (2.5-6.2) 10/13/17 06:00 Calcium 9.2 mg/dL (8.4-10.5) 10/14/17 06:45 Phosphorus 4.1 mg/dL (2.5-4.5) 10/13/17 06:00 Magnesium 1.7 mg/dL (1.7-2.2) 10/14/17 08:40 Iron 44 ug/dL (45-180) L 10/13/17 06:00 TIBC 193 ug/dL (265-497) L 10/13/17 06:00 % Saturation 23 % (20-55) 10/13/17 06:00 Ferritin 224.0 ng/mL 10/13/17 06:00 Total Bilirubin 1.0 mg/dL (0.2-1.3) 10/14/17 06:45 AST 78 U/L (14-36) H 10/14/17 06:45 ALT 54 U/L (7-56) 10/14/17 06:45 Alkaline Phosphatase 107 U/L (38-126) 10/14/17 06:45 Lactate Dehydrogenase 793 U/L (333-699) H 10/12/17 17:35 Total Creatine Kinase 422 U/L (35-230) H 10/12/17 17:35 CK-MB (CK-2) 4.3 ng/mL (0.0-3.6) H 10/12/17 17:35 CK-MB (CK-2) % Cancelled 10/12/17 17:35 Troponin I < 0.01 ng/mL 10/12/17 17:35 Total Protein 6.7 g/dL (5.8-8.3) 10/14/17 06:45 Albumin 3.3 g/dL (3.0-4.8) 10/14/17 06:45 Globulin 3.4 gm/dL 10/14/17 06:45 Albumin/Globulin Ratio 1.0 (1.1-1.8) L 10/14/17 06:45 Lipase 51 U/L (23-300) 10/12/17 17:35 Vitamin B12 > 1000 pg/mL (239-931) H 10/13/17 06:00 Folate 4.4 ng/mL 10/13/17 06:00 Urine Color Dark yellow (YELLOW) 10/12/17 19:10 Urine Appearance Slight-cloudy (CLEAR) 10/12/17 19:10 Urine pH 5.5 (4.7-8.0) 10/12/17 19:10 Ur Specific [place] >= 1.030 (1.005-1.035) 10/12/17 19:10 Urine Protein 30 mg/dL (<30 mg/dL) H 10/12/17 19:10 Urine Glucose (UA) Negative mg/dL (NEGATIVE) 10/12/17 19:10 Urine Ketones Trace mg/dL (NEGATIVE) H 10/12/17 19:10 Urine Blood Negative (NEGATIVE) 10/12/17 19:10 Urine Nitrate Negative (NEGATIVE) 10/12/17 19:10 Urine Bilirubin Small (NEGATIVE) H 10/12/17 19:10 Urine Urobilinogen 0.2 E.U./dL (<1 E.U./dL) 10/12/17 19:10 Ur Leukocyte Esterase Negative Tomasa/uL (NEGATIVE) 10/12/17 19:10 Urine RBC 2 - 5 /hpf (0-2) 10/12/17 19:10 Urine WBC 5 - 10 /hpf (0-6) 10/12/17 19:10 Ur Epithelial Cells 6 - 8 /hpf (0-5) 10/12/17 19:10 Amorphous Sediment Small 10/12/17 19:10 Urine Bacteria Trace (NEG) 10/12/17 19:10 Urine Eosinophils Negative 10/14/17 01:00 Urine Osmolality 626 mosm/kg (300-1000) 10/12/17 23:58 Ur Random Creatinine 451 mg/dL 10/13/17 00:12 Ur Random Sodium 96 meq/L 10/12/17 23:58 Ur Random Potassium 37.1 meq/L 10/12/17 23:58 Hepatitis A IgM Ab Negative (NEGATIVE) 10/13/17 15:20 Hep Bs Antigen Negative (NEGATIVE) 10/13/17 15:20 Hep B Core IgM Ab Negative (NEGATIVE) 10/13/17 15:20 Hepatitis C Antibody Negative (NEGATIVE) 10/13/17 15:20 - Hospital Course Hospital Course: HPI on presentation: CC: Loss of appetite and fatigue x4 weeks 62 yo F with PMH of morbid obesity, gout, HTN and arthritis, presented to the ER complaining of sour taste in her mouth, lack of appetite, fatigue, and weight loss for the past 4 weeks. She reports that one month ago, her PMD started her on meloxicam for her joint pains, and ever since starting that she has had a sour taste in her mouth with everything she eats, subsequently resulting in a lack of appetite. She reports that she hasn't been eating much for the past month, and has lost a small amount of weight (unsure of how much), and that she has been fatigued. She denies fevers, chills, night sweats, hematochezia, melena, hemoptysis, hematemesis. She also reports chronic lower extremity swelling, recently worsened, but denies any history of renal disease or heart disease. She reports normal urinary habits, without any recent changes ; denies dysuria, hematuria, urgency, frequency, hesitancy. She also denies nausea, vomiting, diarrhea, constipation, abdominal pain. Hospital Course: Throughout her stay, the following imaging was ordered: CT Abdomen Pelvis: Findings consistent with colitis of the proximal colon US Renal: No obstructive calculus, hydronephrosis, or renal cyst Pertinent lab results were: BUN Trend: 23 --> 17 Cr Trend: 2.7--> 1.7 Iron: 44 (low) TIBC: 193 (low) Vitamin B12: >1000 (H) AST Trend: 93-->78 ALT Trend: 73-->54 Hep Panel: Negative While at the hospital, the patient's appetite improved, but only slightly. It was determined that the dysgeusia was most likely 2/2 to her Meloxicam. Her PAMELA was determined to be 2/2 dehydration and loss of appetite, and her transaminitis was likely induced 2/2 meloxicam or colchicine. The colchicine dose was cut in half to preserve both renal and hepatic function, and the meloxicam was discontinued altogether. The colitis, according to the valuation consultant , was most likely due to the meloxicam as well, but because it was asymptomatic , o/p follow up was recommended. Patient was deemed stable on day of discharge with the following assessment and plan: A/P: 62 y/o F with PMHx morbid obesity, gout, HTN, and arthritis presenting with dysgeusia and fatigue. Pt also has PAMELA and colitis on CT Acute Weight Loss likely 2/2 Dysgeusia VS PAMELA - Hold meloxicam - Monitor appetite Acute Renal Failure - Urine lytes, urine eosinophils, esr, crp pending - Creatinine trending down right now - Renal u/s: No obstructing calculus, hydronephrosis, nor renal cyst ID - UA: few RBC's, Protein 30, with negative leuk esterase - FeNa: .3%, definitely pre-renal etiology - CK 4.3, but no clinical signs of rhabdomyolysis - likely 2/2 dehydration - Nephro c/s: Spoke with Dr. Landrum, thank you Cut Colchicine dose in half Ordered uric acid levels: normal Transaminitis - trending downward - GI on c/s: Dr. Begum: recommends stopping meloxicam, believes it is a drug induced transaminitis - Monitor - Combined with elevated B12, suspicious for hepatitis - hep panel ordered - Stool electrolytes, fecal leukocytes, giardia, c. diff, ova/parasites, and culture Colitis - Stool culture, stool lactoferrin pending - GI on c/s: Dr. Begum: recommends stopping meloxicam, believes it is a drug induced colitis Anemia likely 2/2 ACD - Pt's baseline not available, but Fe low and TIBC low with normal Ferritin and normal percent saturation indicate ACD - Monitor with labs at this time HTN - Continue norvasc, as patient's BP was climbing after it was held. Pedal edema insignificant at this time Discharge Exam - Head Exam Head Exam: ATRAUMATIC, NORMOCEPHALIC - Additional Findings Additional findings: Phys Exam: VS as below Const'l: obese female, aa&o x 4, nad Head/Neck: neck supple, no jvd, trachea midline, carotid midline, no cervical /head mass Eyes: yuly, nonicteric sclera, eom intact ENT: auditory acuity grossly intact, throat not congested, no nasal deformity Cardio: rrr, no m/r/g, no carotid bruit, nml s1, s2 Pulm: no accessory muscle use, equal nml breath sounds bilaterally, ctab Abd: obesity-limited exam; Melvin's sign absent; s/nt/nd, nbs x 4 q, no palpable masses Derm: no rashes, no ulcers, no lesions Extr: + b/l 1+ non-pitting edema in LE; no cyanosis, no calf tenderness, no lesions, no varicosities Neuro: cn II-XII grossly intact, ue and le 5/5 muscle strength bilaterally, no los ue, le bilaterally and core Discharge Plan - Discharge Medications Prescriptions: Colchicine [Colcrys] 1 tab PO DAILY #0 tablet - Follow Up Plan Condition: IMPROVED Disposition: HOME/ ROUTINE Instructions: Pneumococcal Vaccine for Adults (DC), Acute Kidney Injury (DC), Gout (DC), Influenza Vaccine (DC), Acute Diarrhea (GEN) Additional Instructions: 1. Please follow up with your PMD, Dr. Prather 2. I would like for you to get a set of blood work called the 'CMP' within 4 days from discharge 3. At this time, I am holding your Meloxicam. Please discuss this medication with your primary care doctor (PMD). 4. Should your symptoms persist or worsen, please return to the ED immediately. Referrals: Santy Prather MD [Family Provider] -
--- NOTE | 2017-10-14 14:20 | CP.PCM.PN ---
Subjective - Date & Time of Evaluation Date of Evaluation: 10/14/17 Time of Evaluation: 14:20 - Subjective Subjective: renal progress note please call us at [phone] if any qs Objective - Vital Signs/Intake and Output Vital Signs (last 24 hours): Temp Pulse Resp BP Pulse Ox 98.3 F 85 20 128/87 100 10/14/17 08:22 10/14/17 10:38 10/14/17 08:22 10/14/17 10:38 10/14/17 08:22 Intake and Output: 10/14/17 10/14/17 06:59 18:59 Intake Total 1000 Balance 1000 - Medications Medications: Current Medications Allopurinol (Zyloprim) 300 mg PO DAILY [facility] Last Admin: 10/14/17 10:38 Dose: 300 mg Amlodipine Besylate (Norvasc) 5 mg PO DAILY [facility] Last Admin: 10/14/17 10:38 Dose: 5 mg Colchicine (Colocrys) 0.3 mg PO BID [facility] Last Admin: 10/14/17 10:38 Dose: 0.3 mg Heparin Sodium (Porcine) (Heparin) 5,000 units SC Q12 GERALD PRN Reason: Protocol Last Admin: 10/14/17 10:38 Dose: 5,000 units Sodium Chloride (Sodium Chloride 0.9%) 1,000 mls @ 75 mls/hr IV .[id number] [facility] Last Admin: 10/14/17 10:41 Dose: 75 mls/hr Oxycodone/Acetaminophen (Percocet 5/325 Mg Tab) 1 tab PO Q6H PRN PRN Reason: Pain, severe (8-10) Stop: 10/16/17 08:50 Last Admin: 10/14/17 10:38 Dose: 1 tab Pantoprazole Sodium (Protonix Ec Tab) 40 mg PO 0600 [facility] Last Admin: 10/14/17 06:24 Dose: 40 mg - Labs Labs: 10/14/17 06:45 10/14/17 06:45 PT 11.1 SECONDS (9.4-12.5) 10/12/17 16:50 INR 1.02 (0.93-1.08) 10/12/17 16:50 APTT 25.1 Seconds (25.1-36.5) 10/12/17 16:50
== END 2017-10-14 14:44 | disposition home or self-care (01) | DRG 683 ==
LOC: ED 16:05 → ERH 22:17 → 5RSO 10-13 00:36
PROVIDERS: ADMIT Internal Medicine; ATTEND Internal Medicine
DX: N17.9 Acute kidney failure, unspecified (principal); Z68.43 Body mass index [BMI] 50.0-59.9, adult; E66.01 Morbid (severe) obesity due to excess calories; D64.9 Anemia, unspecified; E86.0 Dehydration; M19.90 Unspecified osteoarthritis, unspecified site; K52.9 Noninfective gastroenteritis and colitis, unspecified; I10 Essential (primary) hypertension; M10.9 Gout, unspecified; Z79.899 Other long term (current) drug therapy; Z80.0 Family history of malignant neoplasm of digestive organs; F14.11 Cocaine abuse, in remission; R74.0 Nonspecific elevation of levels of transaminase and lactic acid dehydrogenase [LDH]

== ENCOUNTER 2017-12-24 13:05 | Emergency (ER) | payer MEDICAID ==
[2017-12-24 15:06] VITALS: BMI 44.6
--- NOTE | 2017-12-24 15:36 | ED PDOC ---
Arrival/HPI - General Chief Complaint: Trauma Time Seen by Provider: 12/24/17 15:34 Historian: Patient - History of Present Illness Narrative History of Present Illness (Text): 12/24/17 15:35 This 62 yo female with pmh gout, htn, presents to this Emergency department complaining of left fore head injury x [employer]. Patient stated she accidentally hip head against a towel [place]. Patient denies LOC, diplopia, dysarthria, dysphagia, neck pain, dizziness, syncope, leg swelling, n/v, or abnormal gait. Patient also stated she tripped and fell on the floor at work x 12 days ago. Patient stated her knees have been bothering. Denies other complains. Patient has been ambulatory with her normal baseline gait, and no neuro focal deficits. Patient admits chronic knee pain, and arthritis. Time/Duration: Prior to Arrival Quality: Aching Context: Home Past Medical History - Provider Review Nursing Documentation Reviewed: Yes - Infectious Disease Hx of Infectious Diseases: None - Cardiac Hx Hypertension: Yes - Musculoskeletal/Rheumatological Hx Arthritis: Yes Hx Gout: Yes - Psychiatric Hx Substance Use: No - Surgical History Hx Section: Yes (x1) Other/Comment: laparoscopic surgery - Anesthesia Hx Anesthesia: Yes Hx Anesthesia Reactions: No Hx Malignant Hyperthermia: No Family/Social History - Physician Review Nursing Documentation Reviewed: Yes Family/Social History: Other (noncontributory) Smoking Status: Never Smoked Hx Alcohol Use: No Hx Substance Use: No Allergies/Home Meds Allergies/Adverse Reactions: Allergies No Known Allergies Allergy (Verified 10/12/17 16:07) Home Medications: Home Meds Medication Instructions Recorded Confirmed Allopurinol [Zyloprim] 1 tab PO DAILY 10/12/17 10/12/17 Ergocalciferol [Drisdol 50,000 1 cap PO Q7D 10/12/17 10/12/17 Intl Units Cap] amLODIPine [Norvasc] 1 tab PO DAILY 10/12/17 10/12/17 oxyCODONE/Acetaminophen [Percocet 1 tab PO Q6H PRN 10/12/17 10/12/17 5/325 mg Tab] Review of Systems - Review of Systems Constitutional: Normal. absent: Fatigue, Weight Change, Fevers, Night Sweats Eyes: Normal ENT: Normal Respiratory: Normal. absent: SOB, Cough Cardiovascular: Normal. absent: Chest Pain Gastrointestinal: Normal. absent: Abdominal Pain, Nausea, Vomiting Genitourinary Female: Normal. absent: Hematuria Musculoskeletal: Other (see hpi) Skin: Normal Neurological: Normal Endocrine: Normal Hemo/Lymphatic: Normal Psychiatric: Normal Physical Exam Vital Signs Temp Pulse Resp BP Pulse Ox 12/24/17 15:52 97.7 F 76 18 123/83 96 Temperature: Afebrile Blood Pressure: Normal Pulse: Regular Respiratory Rate: Normal Appearance: Positive for: Well-Appearing, Non-Toxic, Comfortable Pain Distress: None Mental Status: Positive for: Alert and Oriented X 3 - Systems Exam Head: Present: Normocephalic, Ecchymosis (left forehead ecchymosis approx. 3 cm) , Other (no raccoon sign. No tubbs sign.) Pupils: Present: PERRL, Other (no hyphema) Extroacular Muscles: Present: EOMI. No: Entrapment Conjunctiva: Present: Normal Ears: Present: Normal, NORMAL TM, Normal Canal, Other (no hemotympanum). No: Erythema, TM Bulging, Fluid, TM Perf Mouth: Present: Moist Mucous Membranes, Normal Lips, Normal Tounge. No: Drooling Pharnyx: Present: Normal. No: ERYTHEMA, EXUDATE, TONSILS ENLARGED Nose (External): Present: Atraumatic Nose (Internal): Present: Normal Inspection Neck: Present: Normal Range of Motion, Trachea Midline. No: Meningeal Signs, MIDLINE TENDERNESS, Paraspinal Tenderness Respiratory/Chest: Present: Clear to Auscultation, Good Air Exchange. No: Respiratory Distress, Accessory Muscle Use, Wheezes, Retracting, Rhonchi, Tachypneic Cardiovascular: Present: Regular Rate and Rhythm, Normal S1, S2. No: Murmurs Abdomen: Present: Normal Bowel Sounds. No: Tenderness, Distention, Peritoneal Signs, Rebound, Guarding Back: Present: Normal Inspection. No: CVA Tenderness Upper Extremity: Present: Normal Inspection, Normal ROM, NORMAL PULSES, Neurovascularly Intact, Capillary Refill < 2s. No: Cyanosis, Edema Lower Extremity: Present: Normal Inspection, NORMAL PULSES, Normal ROM, Neurovascularly Intact, Capillary Refill < 2 s, Other (No septic knee joint). No: Edema, Cyanosis, Tenderness, Swelling, Erythema, Temperature Abnormalties Neurological: Present: GCS=15, CN II-XII Intact, Speech Normal, Motor Func Grossly Intact, Normal Sensory Function, Normal Cerebellar Funct, Gait Normal Skin: Present: Warm, Dry, Normal Color. No: Rashes Psychiatric: Present: Alert, Oriented x 3, Normal Insight, Normal Concentration Medical Decision Making ED Course and Treatment: 12/24/17 16:37 Re-evaluation. Patient feels better. Discussed results and plan with patient who expresses understanding. All questions answered and there is agreement with the plan to discharge home with instructions. Patient stable for discharge. Return if symptoms persist or worsen. Patient requested a prescription for cough. Denies sob, cp, hemoptysis, fever, recent travel, or sick contact. Re-evaluation Time: 16:37 Reassessment Condition: Re-examined, Improved - RAD Interpretation Narrative RAD Interpretations (Text): 12/24/17 16:35 PROCEDURE: CT HEAD WITHOUT CONTRAST. HISTORY: Trauma/ AGUILAR COMPARISON: None available. TECHNIQUE: Axial computed tomography images were obtained through the head/brain without intravenous contrast. Radiation dose: Total exam DLP = 905.2 mGy-cm. This CT exam was performed using one or more of the following dose reduction techniques: Automated exposure control, adjustment of the mA and/or kV according to patient size, and/or use of iterative reconstruction technique. FINDINGS: HEMORRHAGE: No intracranial hemorrhage. BRAIN: No mass effect or edema. No atrophy or chronic microvascular ischemic changes. VENTRICLES: Unremarkable. No hydrocephalus. CALVARIUM: Unremarkable. PARANASAL SINUSES: Unremarkable as visualized. No significant inflammatory changes. MASTOID AIR CELLS: Unremarkable as visualized. No inflammatory changes. OTHER FINDINGS: None. IMPRESSION: No evidence of acute intracranial hemorrhage intracranial collection mass effect or midline shift. Radiology Orders: 12/24/17 15:34 HEAD W/O CONTRAST [CT] Stat 12/24/17 15:35 KNEE W PATELLA BILAT 3 VIEW [RAD] Stat - Medication Orders Current Medication Orders: Discontinued Medications Tramadol/Acetaminophen (Ultracet 37.5/325 Mg) 1 tab PO STAT STA Stop: 12/24/17 16:42 Last Admin: 12/24/17 16:49 Dose: 1 tab MAR Pain Assessment Document 12/24/17 16:49 GMD (Rec: 12/24/17 16:49 GMD [id number]) Pain Reassessment Is this a pain reassessment? No Sleep Is patient sleeping during reassessment? No Presence of Pain Presence of Pain Yes Disposition/Present on Arrival - Present on Arrival Any Indicators Present on Arrival: No History of DVT/PE: No History of Uncontrolled Diabetes: No Urinary Catheter: No History of Decub. Ulcer: No History Surgical Site Infection Following: None - Disposition Have Diagnosis and Disposition been Completed?: Yes Diagnosis: Closed head injury, Knee pain, bilateral Disposition: HOME/ ROUTINE Disposition Time: 16:38 Patient Plan: Discharge Condition: GOOD Discharge Instructions (ExitCare): Head Injury (ED), Knee Pain (ED) Additional Instructions: Call private doctor for follow up visit in 1-2 days. Take medication as instructed. You need to call orthopedist for your chronic knee pain. Return to emergency if symptoms worsen. Prescriptions: Promethazine [Phenergan Syrup] 6.25 mg PO Q4H PRN #120 ml PRN Reason: Cough And Congestion traMADol [Ultram] 50 mg PO TID PRN #10 tab PRN Reason: Pain, Severe (8-10) Referrals: Santy Prather MD [Primary Care Provider] - Follow up with primary Forms: NoDaysOff (Latvian), WORK NOTE
[2017-12-24 15:52] VITALS: BP 123/83; PULSE 76; RESP 18; TEMP 97.7; O2SAT 96
--- NOTE | 2017-12-24 16:16 | CT ---
PROCEDURE: CT HEAD WITHOUT CONTRAST. HISTORY: Trauma/ AGUILAR COMPARISON: None available. TECHNIQUE: Axial computed tomography images were obtained through the head/brain without intravenous contrast. Radiation dose: Total exam DLP = 905.2 mGy-cm. This CT exam was performed using one or more of the following dose reduction techniques: Automated exposure control, adjustment of the mA and/or kV according to patient size, and/or use of iterative reconstruction technique. FINDINGS: HEMORRHAGE: No intracranial hemorrhage. BRAIN: No mass effect or edema. No atrophy or chronic microvascular ischemic changes. VENTRICLES: Unremarkable. No hydrocephalus. CALVARIUM: Unremarkable. PARANASAL SINUSES: Unremarkable as visualized. No significant inflammatory changes. MASTOID AIR CELLS: Unremarkable as visualized. No inflammatory changes. OTHER FINDINGS: None. IMPRESSION: No evidence of acute intracranial hemorrhage intracranial collection mass effect or midline shift.
[2017-12-24] MEDS ORDERED: TraMADol/Apap 37.5/325 mg Tab PO STA (16:41)
--- NOTE | 2017-12-24 16:56 | RAD ---
PROCEDURE: Bilateral Knee Radiographs. HISTORY: Pain COMPARISON: None. FINDINGS: BONES: Right Knee: No evidence of acute fracture . Left Knee: No evidence of acute fracture . JOINTS: Right Knee: Severe osteoarthritic changes Left knee: Severe osteoarthritic changes SOFT TISSUES: Right Knee: Diffuse soft tissue swelling Left Knee: Diffuse soft tissue swelling JOINT EFFUSION: Right Knee: Small suprapatellar joint effusion. Left Knee: Small suprapatellar joint effusion OTHER FINDINGS: None. IMPRESSION: Severe osteoarthritic degenerative changes bilaterally.
== END 2017-12-24 16:50 | disposition home or self-care (01) ==
LOC: ED 13:05
DX: S09.90XA Unspecified injury of head, initial encounter (principal); W01.198A Fall on same level from slipping, tripping and stumbling with subsequent striking against other object, initial encounter; Y92.89 Other specified places as the place of occurrence of the external cause; Y99.8 Other external cause status; M25.561 Pain in right knee; M25.562 Pain in left knee

== ENCOUNTER 2018-06-26 10:21 | Emergency (ER) | payer MEDICAID ==
[2018-06-26 10:40] VITALS: RESP 18; TEMP 97.8; O2SAT 100; BMI 25.0
--- NOTE | 2018-06-26 10:42 | ED PDOC ---
Arrival/HPI - General Time Seen by Provider: 06/26/18 10:41 Historian: Patient - History of Present Illness Narrative History of Present Illness (Text): 06/26/18 10:42 A 62 year old female, whose past medical history includes morbidly obese, gout, and hypertension, presents to the emergency department complaining of vaginal bleeding since this morning. Patient stated she never had this symptoms before , and LMP was 20 years ago. Patient denies hematuria, urinary symptoms, abdominal/pelvic pain, rectal bleeding, n/v, sob, cp, or abnormal gait. Patient stated she had "google" vaginal bleeding, and associated with uterus Ca. Patient noted decreased appetite for several months. Time/Duration: Other (see hpi) Context: Home Past Medical History - Provider Review Nursing Documentation Reviewed: Yes - Infectious Disease Hx of Infectious Diseases: None - Cardiac Hx Hypertension: Yes - Musculoskeletal/Rheumatological Hx Arthritis: Yes Hx Gout: Yes - Psychiatric Hx Substance Use: No - Surgical History Hx Section: Yes (x1) Other/Comment: laparoscopic surgery - Anesthesia Hx Anesthesia: Yes Hx Anesthesia Reactions: No Hx Malignant Hyperthermia: No Family/Social History - Physician Review Nursing Documentation Reviewed: Yes Family/Social History: Other (noncontributory) Smoking Status: Never Smoked Hx Alcohol Use: No Hx Substance Use: No Allergies/Home Meds Allergies/Adverse Reactions: Allergies No Known Allergies Allergy (Verified 06/26/18 10:40) Home Medications: Home Meds Medication Instructions Recorded Confirmed Allopurinol [Zyloprim] 1 tab PO DAILY 10/12/17 06/26/18 Cyanocobalamin (Vitamin B-12) 1,000 mcg PO DAILY 06/26/18 06/26/18 [Vitamin B-12] NIFEdipine ER [Procardia XL] 30 mg PO DAILY 06/26/18 06/26/18 Oxycodone HCl/Acetaminophen 1 tab PO Q6 PRN 06/26/18 06/26/18 [Endocet 10-325 mg Tablet] Review of Systems - Review of Systems Constitutional: Normal. absent: Fatigue, Weight Change, Fevers, Night Sweats Eyes: Normal ENT: Normal Respiratory: Normal Cardiovascular: Normal Gastrointestinal: Normal Genitourinary Female: Vaginal Bleeding. absent: Dysuria, Frequency, Hematuria, Vaginal Discharge Musculoskeletal: Normal Skin: Normal Neurological: Normal Endocrine: Normal Hemo/Lymphatic: Normal Psychiatric: Normal Physical Exam Vital Signs Temp Pulse Resp BP Pulse Ox 06/26/18 15:22 65 18 128/69 100 06/26/18 12:53 64 18 132/71 100 06/26/18 11:29 65 18 134/75 100 06/26/18 10:25 64 18 132/71 100 06/26/18 10:22 97.8 F 62 18 136/82 100 Temperature: Afebrile Blood Pressure: Normal Pulse: Regular Respiratory Rate: Normal Appearance: Positive for: Well-Appearing, Non-Toxic, Comfortable Pain Distress: None Mental Status: Positive for: Alert and Oriented X 3 - Systems Exam Head: Present: Atraumatic, Normocephalic Pupils: Present: PERRL Extroacular Muscles: Present: EOMI Conjunctiva: Present: Normal Mouth: Present: Moist Mucous Membranes Neck: Present: Normal Range of Motion Respiratory/Chest: Present: Clear to Auscultation, Good Air Exchange. No: Respiratory Distress, Accessory Muscle Use Cardiovascular: Present: Regular Rate and Rhythm, Normal S1, S2. No: Murmurs Abdomen: No: Tenderness, Distention, Peritoneal Signs Back: Present: Normal Inspection. No: CVA Tenderness Upper Extremity: Present: Normal Inspection. No: Cyanosis, Edema Lower Extremity: Present: Normal Inspection. No: Edema Neurological: Present: GCS=15, CN II-XII Intact, Speech Normal Skin: Present: Warm, Dry, Normal Color. No: Rashes Psychiatric: Present: Alert, Oriented x 3, Normal Insight, Normal Concentration Medical Decision Making ED Course and Treatment: 06/26/18 15:55 Re-evaluation. Patient feels better. Discussed results and plan with patient who expresses understanding. All questions answered and there is agreement with the plan to discharge home with instructions. Patient stable for discharge. Return if symptoms persist or worsen. I recommended patient to f/u [facility] for further revaluation due to abnormal ultrasound report, and vaginal bleeding. I told patient she may need a Endometrial biopsy. She understood plan. Sister were at bedside and also understood the importance to f/u [facility] doctor. Re-evaluation Time: 15:55 Reassessment Condition: Re-examined, Improved - Lab Interpretations Lab Results: 06/26/18 11:22 06/26/18 11:22 Lab Results 06/26/18 12:50: Urine Color Yellow, Urine Appearance Clear, Urine pH 6.0, Ur Specific [place] >= 1.030, Urine Protein 30 H, Urine Glucose (UA) Negative, Urine Ketones Trace H, Urine Blood Large H, Urine Nitrate Negative, Urine Bilirubin Negative, Urine Urobilinogen 1.0 H, Ur Leukocyte Esterase Negative, Urine RBC 2 - 5, Urine WBC 0 - 2, Ur Epithelial Cells 10 - 12, Urine Bacteria Many, Hyaline Casts 2 - 5 06/26/18 11:22: PT 11.2, INR 0.97, APTT 26.9 06/26/18 11:22: Sodium 144, Potassium 4.4, Chloride 113 H, Carbon Dioxide 18 L, Anion Gap 17, BUN 16, Creatinine 1.3 H, Est GFR ( Amer) 50, Est GFR (Non- Af Amer) 42, Random Glucose 79, Calcium 9.6, Magnesium 1.6 L, Total Bilirubin 0.7, AST 32, ALT 22, Alkaline Phosphatase 94, Total Protein 7.0, Albumin 3.7, Globulin 3.3, Albumin/Globulin Ratio 1.1 06/26/18 11:22: WBC 4.8 D, RBC 3.90, Hgb 10.2 L, Hct 31.4 L, MCV 80.5 D, MCH 26.2, MCHC 32.5, RDW 17.2 H, Plt Count 148, Gran % 51.4, Lymph % (Auto) 37.9 H, P[place] % (Auto) 9.0 H, Eos % (Auto) 1.5, Baso % (Auto) 0.2, Gran # 2.47, Lymph # ( Auto) 1.8, Pinal # (Auto) 0.4, Eos # (Auto) 0.1, Baso # (Auto) 0.01 I have reviewed the lab results: Yes Interpretation: No sign. chg./baseline - RAD Interpretation Narrative RAD Interpretations (Text): 06/26/18 12:51 Date of service: TECHNIQUE: Transvaginal only. Real -time technique with 2D, duplex and color Doppler FINDINGS: UTERUS: Measures 5.4 x 4 x 8.5 cm. Normal in size and appearance. No fibroid or other mass lesion seen. ENDOMETRIUM: Measures 8.5 mm in diameter. Endometrial thickening. Endometrial thickness should not exceed 5 mm in a postmenopausal individual. CERVIX: No cervical abnormality identified.Incidental finding: Nabothian cysts the largest measures less than 1 cm RIGHT OVARY: Measures 1.8 x 2.4 x 2.8 cm. No solid mass. Normal flow. Complex likely hemorrhagic subcentimeter cyst LEFT OVARY: Not visualized. FREE FLUID: No significant free fluid noted. OTHER FINDINGS: None. IMPRESSION: Endometrial hypertrophy. In a postmenopausal individual, follow-up advised. Complex sub cm cyst right adnexa. 06/26/18 15:25 PROCEDURE: CT Abdomen and Pelvis with contrast FINDINGS: LOWER THORAX: Unremarkable. LIVER: Unremarkable. No gross lesion or ductal dilatation. GALLBLADDER AND BILE DUCTS: Status post cholecystectomy. No abnormality is seen in the gallbladder fossa. PANCREAS: Unremarkable. No gross lesion or ductal dilatation. SPLEEN: Unremarkable. ADRENALS: Unremarkable. No mass. KIDNEYS AND URETERS: Unremarkable. No hydronephrosis. No solid mass. VASCULATURE: Unremarkable. No aortic aneurysm. BOWEL: Unremarkable. No obstruction. No gross mural thickening. APPENDIX: No abnormalities to suggest acute appendicitis. No right lower quadrant inflammatory processes identified. PERITONEUM: Unremarkable. No free fluid. No free air. LYMPH NODES: Unremarkable. No enlarged lymph nodes. BLADDER: Unremarkable. REPRODUCTIVE: Unremarkable. BONES: No acute fracture. OTHER FINDINGS: Fat containing periumbilical hernia. The rectus diastases is approximately 1.6 cm. There is no evidence of incarceration of bowel or proximal dilatation of small bowel. IMPRESSION: No acute findings related to/accounting for the clinical presentation. Additional benign and/or incidental findings described above. Radiology Orders: 06/26/18 10:54 TRANSVAGINAL [US] Stat 06/26/18 13:49 ABD & PELVIS IV CONTRAST ONLY [CT] Stat Disposition/Present on Arrival - Present on Arrival Any Indicators Present on Arrival: No History of DVT/PE: No History of Uncontrolled Diabetes: No Urinary Catheter: No History Surgical Site Infection Following: None - Disposition Have Diagnosis and Disposition been Completed?: Yes Diagnosis: Postmenopausal vaginal bleeding, CKD (chronic kidney disease) Disposition: HOME/ ROUTINE Disposition Time: 16:07 Patient Plan: Discharge Condition: GOOD Additional Instructions: Call private doctor for follow up visit in 1-2 days. Also, it is very important you see your private [facility] or our clinic for further testing for your vaginal bleeding. You may need a biopsy of your uterus for bleeding. Return to emergency if symptoms worsen. Referrals: Ibeth Prather MD [Primary Care Provider] - Follow up with primary [facility] [Outside] - [facility] with [facility] [Outside] - Follow up with primary
[2018-06-26 12:04] LABS: BASO # 0.01 K/mm3 (0.0-2.0); BASO % 0.2 % (0.0-3.0); EOS # 0.1 (0.0-0.7); EOS % 1.5 % (1.5-5.0); GRAN # 2.47 (1.4-6.5); GRAN % 51.4 % (50.0-68.0); HEMOGLOBIN 10.2 g/dL (12.0-16.0); LYMPH # 1.8 (1.2-3.4); LYMPH % 37.9 % (22.0-35.0); MEAN CELL VOLUME 80.5 fl (80.0-105.0); MEAN CORPUSCULAR HEMOGLOBIN 26.2 pg (25.0-35.0); MEAN CORPUSCULAR HGB CONC 32.5 g/dl (31.0-37.0); MONO # 0.4 (0.1-0.6); PLATELET COUNT 148 10^3/uL (120.0-450.0); RED CELL DISTRIBUTION WIDTH 17.2 % (11.5-14.5); WHITE BLOOD COUNT 4.8 10^3/ul (4.5-11.0)
[2018-06-26 12:08] LABS: INR 0.97; PARTIAL THROMBOPLASTIN TIME 26.9 Seconds (25.1-36.5); PROTHROMBIN TIME 11.2 SECONDS (9.4-12.5)
[2018-06-26 12:10] LABS: ALB/GLOB RATIO 1.1 (1.1-1.8); ALBUMIN 3.7 g/dL (3.0-4.8); CALCIUM 9.6 mg/dL (8.4-10.5)
--- NOTE | 2018-06-26 12:38 | US ---
Date of service: 06/26/2018 HISTORY: vaginal bleeding r/o malignancy COMPARISON: None available. TECHNIQUE: Transvaginal only. Real -time technique with 2D, duplex and color Doppler FINDINGS: UTERUS: Measures 5.4 x 4 x 8.5 cm. Normal in size and appearance. No fibroid or other mass lesion seen. ENDOMETRIUM: Measures 8.5 mm in diameter. Endometrial thickening. Endometrial thickness should not exceed 5 mm in a postmenopausal individual. CERVIX: No cervical abnormality identified.Incidental finding: Nabothian cysts the largest measures less than 1 cm RIGHT OVARY: Measures 1.8 x 2.4 x 2.8 cm. No solid mass. Normal flow. Complex likely hemorrhagic subcentimeter cyst LEFT OVARY: Not visualized. FREE FLUID: No significant free fluid noted. OTHER FINDINGS: None. IMPRESSION: Endometrial hypertrophy. In a postmenopausal individual, follow-up advised. Complex sub cm cyst right adnexa.
[2018-06-26 13:04] LABS: URINE BILIRUBIN NEGATIVE (NEGATIVE); URINE BLOOD LARGE (NEGATIVE); URINE GLUCOSE (UA) NEGATIVE (NEGATIVE); URINE LEUKOCYTE ESTERASE NEGATIVE Leu/uL (NEGATIVE); URINE PROTEIN 30 mg/dL (<30 mg/dL)
[2018-06-26 13:15] LABS: URINE APPEARANCE CLEAR (CLEAR); URINE COLOR YELLOW (YELLOW)
[2018-06-26 13:53] LABS: URINE BACTERIA MANY (NEG); URINE WBC 0 - 2 /hpf (0-6)
[2018-06-26] MEDS ORDERED: Iohexol 350 MG/100 ML VIAL ONE (14:24)
--- NOTE | 2018-06-26 15:24 | CT ---
Date of service: 06/26/2018 PROCEDURE: CT Abdomen and Pelvis with contrast HISTORY: hematuria, Endometrial hypertrophy COMPARISON: 10/12/2017 CT abdomen and pelvis. June 26, 2018. Pelvic ultrasound TECHNIQUE: Contrast dose: 100 cc Omnipaque 350 Radiation dose: Total exam DLP = 978.09 mGy-cm. This CT exam was performed using one or more of the following dose reduction techniques: Automated exposure control, adjustment of the mA and/or kV according to patient size, and/or use of iterative reconstruction technique. FINDINGS: LOWER THORAX: Unremarkable. LIVER: Unremarkable. No gross lesion or ductal dilatation. GALLBLADDER AND BILE DUCTS: Status post cholecystectomy. No abnormality is seen in the gallbladder fossa. PANCREAS: Unremarkable. No gross lesion or ductal dilatation. SPLEEN: Unremarkable. ADRENALS: Unremarkable. No mass. KIDNEYS AND URETERS: Unremarkable. No hydronephrosis. No solid mass. VASCULATURE: Unremarkable. No aortic aneurysm. BOWEL: Unremarkable. No obstruction. No gross mural thickening. APPENDIX: No abnormalities to suggest acute appendicitis. No right lower quadrant inflammatory processes identified. PERITONEUM: Unremarkable. No free fluid. No free air. LYMPH NODES: Unremarkable. No enlarged lymph nodes. BLADDER: Unremarkable. REPRODUCTIVE: Unremarkable. BONES: No acute fracture. OTHER FINDINGS: Fat containing periumbilical hernia. The rectus diastases is approximately 1.6 cm. There is no evidence of incarceration of bowel or proximal dilatation of small bowel. IMPRESSION: No acute findings related to/accounting for the clinical presentation. Additional benign and/or incidental findings described above.
[2018-06-26 16:22] VITALS: BP 125/67; PULSE 64
== END 2018-06-26 16:26 | disposition home or self-care (01) ==
LOC: ED 10:21
DX: N93.8 Other specified abnormal uterine and vaginal bleeding (principal); I12.9 Hypertensive chronic kidney disease with stage 1 through stage 4 chronic kidney disease, or unspecified chronic kidney disease; N18.9 Chronic kidney disease, unspecified
CPT/HCPCS: 74177; 76830; 80053; 81001; 83735; 85025; 85610; 85730; 87086; 99285; Q9967